=== PATIENT | female | born 1955 | race Caucasian/White ===

== ENCOUNTER 2020-05-24 10:27 | Inpatient (IN) | payer OTHER ==
[2020-05-24] VITALS (12 sets, daily range): BP systolic 86–127; BP diastolic 52–66
[~2020-05-24] VITALS: Ht 152.4 cm; Wt 50.5 kg
--- NOTE | ~2020-05-24 | EMS ---
[address] [address] EMS Patient Care Report Name: RAZ GARCÍA Room #: 243-P ADM IN M.R.#: [id number] Admission: 05/24/20 Attend Phys: Susan Rivera Discharge: Date of : 51 Report #: [id number] THIS REPORT FOR: //name// Report Transmitted: 05/25/2020 18:07 EMS Care Summary [place], [place]/[facility] Incident [id number] @ 05/24/2020 09:54 Incident Location [address] [place] [address] Patient RAZ GARCÍA Female, 65 Years 1955 Patient Address [address] [place] [address] Patient History Dementia, Patient Allergies No known allergies, Patient Medications None Reported, Chief Complaint unresponsive Disposition Transported Lights/[place] Dispatch Reason Unconscious/Fainting Transported To [facility] Narrative RESPONDED TO UNCONSCIOUS AT HOME. UPON ARRIVAL P45 FF REPORTS PT IS NOT ALERT TO BASELINE AND THEY STRUGGLED TO GET AN ACCURATE BLOOD PRESSURE. PT FOUND ON FLOOR IN BATHROOM, AWAKE BUT NOT VERBAL AND UNABLE TO COMMUNICATE. IT IS UNKNOWN WHEN PT WAS LAST SEEN NORMAL PER ORGANIC CHEMIST. PT TEAM LIFTED AND PUT ON [facility] [address] [place] [address] EMS Patient Care Report Name: RAZ GARCÍA Room #: 243-P ADM IN M.R.#: [id number] Admission: 05/24/20 Attend Phys: Susan Rivera Discharge: Date of : 51 Report #: [id number] COT SUPINE. PT HAS THREADY RADIAL PULSE. IV AND FLUIDS WERE PREPPED. PT GIVEN D 10 THROUGH IV AND FLUIDS WERE GIVEN VIA IO IN TIBIA. PT GIVEN A TOTAL OF 100ML OF D10 WITH NO CHANGE IN MENTAL STATUS. PT GIVEN 800 ML OF NORMAL SALINE WITH NO CHANGE IN PRESSURE. PT REMAINED ON NRB 02 AT 15LPM. PT TRANSPORTED TO [facility] WITH 2 FF RIDERS. PT TEAM LIFTED TO BED AND REPORT GIVEN TO NURSE. Initial Vitals @10:18P: 99,BP: 44/21,SpO2: 92, @10:22P: 98,R: 25,BP: 39/31,Glucose: 200,SpO2: 90, @10:13P: 106,R: 22,BP: 43/24,Pain: 0/10,GCS: 3,Glucose: 63,SpO2: 94,Revised Trauma: 5, Assessments @10:05MENTAL:Unresponsive,SKIN:Pale,HEENT:Head/Face: No Abnormalities,Neck/Airway: No Abnormalities,LUNG SOUNDS:General: No Abnormalities,ABDOMEN:General: No Abnormalities,PELVIS//GI:Incontinence,EXTREMITIES:Left Arm: Weakness,Right Arm: Weakness,Left Leg: Weakness,Right Leg: Weakness,PULSE:NEURO:No Abnormalities,@10:14MENTAL:Unresponsive,SKIN:Pale,HEENT:Head/Face: No Abnormalities,Neck/Airway: No Abnormalities,LUNG SOUNDS:General: No Abnormalities,Left Upper: No Abnormalities,Right Upper: No Abnormalities,Left Lower: No Abnormalities,Right Lower: No Abnormalities,ABDOMEN:General: No Abnormalities,Left Upper: No Abnormalities,Right Upper: No Abnormalities,Left Lower: No Abnormalities,Right Lower: No Abnormalities,PELVIS//GI:Incontinence,EXTREMITIES:Right Arm: Weakness,Left Arm: Weakness,Left Leg: Weakness,Right Leg: Weakness,PULSE:NEURO:No Abnormalities, Impression Altered Mental Status Procedures @PTAOxygen FlowRate: 15 Device: Non Re-breather Mask (NRB) Succeeded@10:09Saline Lock 0cc (20 ga) Site: Antecubital-LeftResponse: UnchangedFailed@10:10Saline Lock 0cc (20 ga) Site: Antecubital-RightResponse: UnchangedFailed@10:10Saline Lock 3cc (22 ga) Site: Forearm-LeftResponse: ImprovedSucceeded@10:17Normal Saline (.9% NaCl) 800cc (EZ-IO (Blue 25mm)) Site: BU-Qyeaj-Svzt ProximalResponse: ImprovedSucceeded@10:11Dextrose 10% - 100 Milliliters (ml) - Intravenous (IV)Response: Improved@10:083-Lead ECGResponse: UnchangedSucceeded@10:05ALS AssessmentResponse: UnchangedSucceeded Timeline 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,Oxygen FlowRate: 15 Device: Non Re-breather Mask (NRB) Succeeded, 09:52,Call Received 09:52,Dispatch Notified 09:54,Dispatched [address] [address] EMS Patient Care Report Name: RAZ GARCÍA Room #: 243-P ADM IN M.R.#: [id number] Admission: 05/24/20 Attend Phys: Susan Rivera Discharge: Date of : 51 Report #: [id number] 09:56,En Route 10:05,On Scene 10:05,At Patient 10:05,ALS Assessment,Response: UnchangedSucceeded, 10:08,3-Lead ECG,Response: UnchangedSucceeded, 10:09,Saline Lock 0cc 20 ga Site: Antecubital-Left,Response: UnchangedFailed, 10:10,Saline Lock 0cc 20 ga Site: Antecubital-Right,Response: UnchangedFailed, 10:10,Saline Lock 3cc 22 ga Site: Forearm-Left,Response: ImprovedSucceeded, 10:11,Dextrose 10% - 100 Milliliters (ml) - Intravenous (IV),Response: Improved 10:13,BP: 43/24 M,PULSE: 106,RR: 22 R,SPO2: 94 Ox,ETCO2: ,B,PAIN: 0,GCS: 3, 10:17,Depart Scene 10:17,Normal Saline (.9% NaCl) 800cc EZ-IO (Blue 25mm) Site: BW-Huqyi-Hwsd Proximal,Response: ImprovedSucceeded, 10:18,BP: 44/21 M,PULSE: 99,RR: R,SPO2: 92 Ox,ETCO2: ,BG: ,PAIN: ,GCS: , 10:22,BP: 39/31 M,PULSE: 98,RR: 25 R,SPO2: 90 Ox,ETCO2: ,B,PAIN: ,GCS: , 10:24,At Destination 10:40,Call Closed Disclaimer v1.1 Copyright 2020 [employer] This EMS Care Summary contains data elements from the applicable legal record (which may be displayed differently). It is designed to provide pertinent information for the following purposes: continuity of care, clinical quality, and state data reporting. The complete legal record is available to ED staff and administrators of the receiving hospital in [employer]'s Patient Tracker. All data is provided "as is."
--- NOTE | ~2020-05-24 | EMS ---
[address] [address] EMS Patient Care Report Name: RAZ GARCÍA Room #: PRE M.R.#: [id number] Admission: Attend Phys: Discharge: Date of : 51 Report #: [id number] THIS REPORT FOR: //name// Report Transmitted: 05/24/2020 10:43 EMS Care Summary [place], [place]/[facility] Incident [id number] @ 05/24/2020 09:54 Incident Location [address] [place] [address] Patient RAZ GARCÍA Female, 65 Years 1955 Patient Address [address] [place] [address] Patient History Dementia, Patient Allergies No known allergies, Patient Medications None Reported, Chief Complaint unresponsive Disposition Transported Lights/[place] Dispatch Reason Unconscious/Fainting Transported To [facility] Narrative RESPONDED TO UNCONSCIOUS AT HOME. UPON ARRIVAL P45 FF REPORTS PT IS NOT ALERT TO BASELINE AND THEY STRUGGLED TO GET AN ACCURATE BLOOD PRESSURE. PT FOUND ON FLOOR IN BATHROOM, AWAKE BUT NOT VERBAL AND UNABLE TO COMMUNICATE. IT IS UNKNOWN WHEN PT WAS LAST SEEN NORMAL PER MULTIMEDIA TEACHER. PT TEAM LIFTED AND PUT ON [address] [address] EMS Patient Care Report Name: RAZ GARCÍA Room #: PRE Laina.#: [id number] Admission: Attend Phys: Discharge: Date of : 51 Report #: [id number] COT SUPINE. PT HAS THREADY RADIAL PULSE. IV AND FLUIDS WERE PREPPED. PT GIVEN D 10 THROUGH IV AND FLUIDS WERE GIVEN VIA IO IN TIBIA. PT GIVEN A TOTAL OF 100ML OF D10 WITH NO CHANGE IN MENTAL STATUS. PT GIVEN 800 ML OF NORMAL SALINE WITH NO CHANGE IN PRESSURE. PT REMAINED ON NRB 02 AT 15LPM. PT TRANSPORTED TO [facility] WITH 2 FF RIDERS. PT TEAM LIFTED TO BED AND REPORT GIVEN TO NURSE. Initial Vitals @10:18P: 99,BP: 44/21,SpO2: 92, @10:22P: 98,R: 25,BP: 39/31,Glucose: 200,SpO2: 90, @10:13P: 106,R: 22,BP: 43/24,Pain: 0/10,GCS: 3,Glucose: 63,SpO2: 94,Revised Trauma: 5, Assessments @10:05MENTAL:Unresponsive,SKIN:Pale,HEENT:Head/Face: No Abnormalities,Neck/Airway: No Abnormalities,LUNG SOUNDS:General: No Abnormalities,ABDOMEN:General: No Abnormalities,PELVIS//GI:Incontinence,EXTREMITIES:Left Arm: Weakness,Right Arm: Weakness,Left Leg: Weakness,Right Leg: Weakness,PULSE:NEURO:No Abnormalities,@10:14MENTAL:Unresponsive,SKIN:Pale,HEENT:Head/Face: No Abnormalities,Neck/Airway: No Abnormalities,LUNG SOUNDS:General: No Abnormalities,Left Upper: No Abnormalities,Right Upper: No Abnormalities,Left Lower: No Abnormalities,Right Lower: No Abnormalities,ABDOMEN:General: No Abnormalities,Left Upper: No Abnormalities,Right Upper: No Abnormalities,Left Lower: No Abnormalities,Right Lower: No Abnormalities,PELVIS//GI:Incontinence,EXTREMITIES:Right Arm: Weakness,Left Arm: Weakness,Left Leg: Weakness,Right Leg: Weakness,PULSE:NEURO:No Abnormalities, Impression Altered Mental Status Procedures @PTAOxygen FlowRate: 15 Device: Non Re-breather Mask (NRB) Succeeded@10:09Saline Lock 0cc (20 ga) Site: Antecubital-LeftResponse: UnchangedFailed@10:10Saline Lock 0cc (20 ga) Site: Antecubital-RightResponse: UnchangedFailed@10:10Saline Lock 3cc (22 ga) Site: Forearm-LeftResponse: ImprovedSucceeded@10:17Normal Saline (.9% NaCl) 800cc (EZ-IO (Blue 25mm)) Site: NZ-Xxdap-Pxla ProximalResponse: ImprovedSucceeded@10:11Dextrose 10% - 100 Milliliters (ml) - Intravenous (IV)Response: Improved@10:083-Lead ECGResponse: UnchangedSucceeded@10:05ALS AssessmentResponse: UnchangedSucceeded 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,Oxygen FlowRate: 15 Device: Non Re-breather Mask (NRB) Succeeded, 09:52,Call Received 09:52,Dispatch Notified 09:54,Dispatched [address] [address] EMS Patient Care Report Name: RAZ GARCÍA Room #: NAZANIN Lucio#: [id number] Admission: Attend Phys: Discharge: Date of : 51 Report #: [id number] 09:56,En Route 10:05,On Scene 10:05,At Patient 10:05,ALS Assessment,Response: UnchangedSucceeded, 10:08,3-Lead ECG,Response: UnchangedSucceeded, 10:09,Saline Lock 0cc 20 ga Site: Antecubital-Left,Response: UnchangedFailed, 10:10,Saline Lock 0cc 20 ga Site: Antecubital-Right,Response: UnchangedFailed, 10:10,Saline Lock 3cc 22 ga Site: Forearm-Left,Response: ImprovedSucceeded, 10:11,Dextrose 10% - 100 Milliliters (ml) - Intravenous (IV),Response: Improved 10:13,BP: 43/24 M,PULSE: 106,RR: 22 R,SPO2: 94 Ox,ETCO2: ,B,PAIN: 0,GCS: 3, 10:17,Depart Scene 10:17,Normal Saline (.9% NaCl) 800cc EZ-IO (Blue 25mm) Site: RN-Eossf-Gary Proximal,Response: ImprovedSucceeded, 10:18,BP: 44/21 M,PULSE: 99,RR: R,SPO2: 92 Ox,ETCO2: ,BG: ,PAIN: ,GCS: , 10:22,BP: 39/31 M,PULSE: 98,RR: 25 R,SPO2: 90 Ox,ETCO2: ,B,PAIN: ,GCS: , 10:24,At Destination 10:40,Call Closed Disclaimer v1.1 Copyright 2020 [employer] This EMS Care Summary contains data elements from the applicable legal record (which may be displayed differently). It is designed to provide pertinent information for the following purposes: continuity of care, clinical quality, and state data reporting. The complete legal record is available to ED staff and administrators of the receiving hospital in [employer]'s Patient Tracker. All data is provided "as is."
[2020-05-24 10:37] LABS: BE(vivo) -9.1 mmol/L (-2 to +3); HCO3 15.4 mmol/L (22.0-26.0); PCO2 29.5 mmHg (35.0-45.0); PO2 235.8 mmHg (80.0-100.0); pH 7.336 (7.360-7.450); sO2 99.5 % (92.0-98.0)
[2020-05-24 10:46] LABS: ABSOLUTE NEUTROPHILS 14.7 thou/uL (1.4-8.2); BASOPHILS 0.3 % (0.0-2.0); HEMATOCRIT 42.6 % (37.0-47.0); HEMOGLOBIN 13.7 gm/dL (12.0-15.0); MCH 30.5 pg (26.0-34.0); MCHC 32.1 g/dL (28.0-37.0); MCV 94.8 fL (80.0-100.0); MONOCYTES 7.3 % (1.0-8.0); POLYS 89.4 % (36.0-66.0); RDW 13.7 % (10.5-14.5); WBC 16.4 thou/uL (4.0-11.0)
[2020-05-24 10:49] LABS: ANION GAP 13 mmol/L (7-16); BUN 92 mg/dL (7-18); CALCIUM 7.9 mg/dL (8.5-10.1); CHLORIDE 114 mmol/L (98-107); CO2 23 mmol/L (21-32); CREATININE 2.3 mg/dL (0.6-1.0); GLUCOSE 349 mg/dL (74-106); POTASSIUM 5.6 mmol/L (3.5-5.1); SODIUM 150 mmol/L (136-145)
[2020-05-24 10:58] LABS: TROPONIN-I <0.06 ng/mL (<0.06)
[2020-05-24 11:16] LABS: URINE BILIRUBIN NEGATIVE (Negative); URINE BLOOD 3+ (Negative); URINE CLARITY CLEAR; URINE COLOR YELLOW; URINE GLUCOSE-RANDOM* NEGATIVE (Negative); URINE KETONES NEGATIVE (Negative); URINE LEUKOCYTES-REFLEX NEGATIVE (Negative); URINE NITRITE-REFLEX NEGATIVE (Negative); URINE PROTEIN (DIPSTICK) TRACE (Negative); URINE SPECIFIC GRAVITY 1.025 (1.005-1.035); URINE UROBILINOGEN 0.2 E.U./dl (0.2-1.0)
[2020-05-24 11:33] LABS: PLATELET COUNT 96 thou/uL (150-400); PLATELET ESTIMATE SLIGHTLY DECREASED
[2020-05-24 11:37] LABS: AMORPHOUS URATES Moderate /LPF (None Seen); BACTERIA-REFLEX 1-9 Few /HPF (None Seen); HYALINE CASTS 4-10 Moderate /LPF (None Seen); SQUAMOUS 4-10 Moderate /LPF (0-3); URINE RBC 0-2 Rare /HPF (0-2); URINE WBC-REFLEX 0-5 Rare /HPF (0-5)
--- NOTE | 2020-05-24 13:00 | NUR ---
JESSICA OSUNA, , HOUSEMATE/AMMONIA SOLUTION PREPARER, OK'D BY [facility] TO GIVE MEDICAL INFORMATION
[2020-05-24] MEDS ORDERED: LEXAPRO 10 MG T10 MG PO (13:47)
--- NOTE | 2020-05-24 19:19 | NUR ---
PT ADMITTED FROM THE ER, PT ARRIVED HERE AT AROUND 1630. PT WITH A GCS OF 12 AND A/O TIMES 2. PT SETTLED IN ROOM AND WIPE DOWN DOWN. ORDERS ACKNOWLEDGED. PT WITH AMS AND NOT ABLE TO ANSWER ALL QUESTIONS. PT RESTING WITH EYES CLOSED.
--- NOTE | 2020-05-24 23:38 | NUR ---
At approximately 2119, patient's niece, Marielew Brannon, who is the DPOA was updated on patient's status and all questions were answered. She clarified that patient does not have a caregiver but instead a roommate.
[2020-05-25] VITALS (20 sets, daily range): BP systolic 93–126; BP diastolic 51–66
[2020-05-25 05:12] LABS: HEMATOCRIT 34.3 % (37.0-47.0); MCH 30.5 pg (26.0-34.0); MCHC 32.8 g/dL (28.0-37.0); MCV 93.1 fL (80.0-100.0); RBC 3.68 mil/uL (4.20-5.00); RDW 13.7 % (10.5-14.5); WBC 10.6 thou/uL (4.0-11.0)
[2020-05-25 05:13] LABS: CALCIUM 7.3 mg/dL (8.5-10.1)
[2020-05-25 05:22] LABS: ALBUMIN 1.9 g/dL (3.4-5.0); PHOSPHORUS 2.4 mg/dL (2.5-4.9)
[2020-05-25 05:27] LABS: HEMOGLOBIN 11.2 gm/dL (12.0-15.0)
[2020-05-25 05:49] LABS: CREATININE 0.9 mg/dL (0.6-1.0); POTASSIUM 4.2 mmol/L (3.5-5.1)
[2020-05-25 05:51] LABS: TROPONIN-I 1.8 ng/mL (<0.06)
--- NOTE | 2020-05-25 06:41 | NUR ---
Received report from offgoing RN and assumed patient care. Patient drowsy but opens eyes to name and is oriented to self only. Patient noted to have a large deep tissue injury on the sacrum. Patient stated this am she is hungry and wanted to eat. Patient has not eaten for 2 days according to family. Additionally, patient had a critical Troponin this am and cardiology was consulted. No other acute events occurred during this shift and VS remained stable.
--- NOTE | 2020-05-25 07:59 | EKG ---
[facility] [address] [address] ELECTROCARDIOGRAM [facility] Room #: [facility]-P ADM IN M.R.#: [id number] Admission: 05/24/20 Attend Phys: Susan Rivera Discharge: Date of : 51 Report #: [id number] THIS REPORT FOR: cc: FAM - Family physician unknown FAM - Family physician unknown Willem Alegre MD [facility] THIS REPORT FOR: //name// [facility] ED Test Date: 2020-05-24 Test Time: 10:38:25 Pat Name: RAZ GARCÍA Department: Room: [facility] Gender: F Banking Analyst: : 1955 Requested By: Emely Donis Order Number: [id number] MD: Willem Alegre Measurements Intervals [place] Rate: 93 P: 38 LA: 150 QRS: 76 QRSD: 108 T: QT: 383 QTc: 477 Interpretive Statements Sinus rhythm Multiple atrial premature complexes Nonspecific ST segment abnormality Artifact in lead(s) I,II,aVF,V1,V2,V3,V4,V5,V6 No previous ECG available for comparison Electronically Signed On 05-25-2020 7:58:48 CDT by Willem Alegre [email or web address] <ELECTRONICALLY SIGNED> By: Willem Alegre MD, [facility] 05/25/20 0758 1038 1038 Willem Alegre MD, [facility] /EPI
--- NOTE | 2020-05-25 08:17 | EKG ---
[facility] [place] [address] [place] [address] ELECTROCARDIOGRAM REPORT Name: RAZ GARCÍA Room #: 243- ADM IN M.R.#: [id number] Admission: 05/24/20 Attend Phys: Susan Rivera Discharge: Date of : 51 Report #: [id number] THIS REPORT FOR: cc: FAM - Family physician unknown FAM - Family physician unknown Willem Alegre MD [facility] THIS REPORT FOR: //name// [facility] Test Date: 2020-05-25 Test Time: 07:37:07 Pat Name: RAZ GARCÍA Department: Room: [facility] Gender: F Hat Trimmer: Anita MÉNDEZ : 1955 Requested By: Aleah Melvin Order Number: [id number] MD: Willem Alegre Measurements Intervals [place] Rate: 87 P: 96 IL: 100 QRS: 77 QRSD: 78 T: -5 QT: 385 QTc: 463 Interpretive Statements Sinus rhythm RSR' in V1 or V2, right VCD Compared to ECG 05/24/2020 10:38:25 RSR' in V1 or V2 now present Electronically Signed On 05-25-2020 8:16:38 CDT by Willem Alegre [email or web address] <ELECTRONICALLY SIGNED> By: Willem Alegre MD, [facility] 05/25/20 0816 0737 0737 Willem Alegre MD, [facility] /EPI
--- NOTE | 2020-05-25 09:53 | 2DMMODE ---
[facility] [address] [place] [address] 2 D/M-MODE ECHOCARDIOGRAM Name: RAZ GARCÍA Room #: 243-P ADM IN M.R.#: [id number] Admission: 05/24/20 Attend Phys: Susan Rivera Discharge: Date of : 51 Report #: [id number] THIS REPORT FOR: cc: FAM - Family physician unknown FAM - Family physician unknown John Carmen MD ~ APPROVED REPORT Study performed: 05/25/2020 08:08:39 EXAM: Comprehensive 2D, Doppler, and color-flow Echocardiogram Patient Location: ICU Room #: 243 Status: routine BSA: 1.41 HR: 88 bpm BP: 105/51 mmHg Rhythm: NSR Other Information Study Quality: Technically Limited Indications Elevated Troponin Unresponsive 2D Dimensions RVDd: 37.30 mm IVSd: 8.28 (7-11mm) LVOT Diam: 17.64 (18-24mm) LVDd: 33.75 mm PWd: 9.42 (7-11mm) Ascending Ao: 23.88 (22-36mm) LVDs: 21.77 (25-40mm) Aortic Root: 24.57 mm IVC: 12.00 mm Aortic Valve AoV Peak Rogerio.: 1.24 m/s AO Peak Gr.: 6.18 mmHg LVOT Max P.97 mmHg LVOT Max V: 1.00 m/s NUNO Vmax: 1.96 cm2 Pulmonary Valve PV Peak Rogerio.: 1.02 m/s PV Peak Gr.: 4.20 mmHg Tricuspid Valve [facility] [address] [place] [address] 2 D/M-MODE ECHOCARDIOGRAM Name: RAZ GARCÍA Room #: 243-P ADM IN M.R.#: [id number] Admission: 05/24/20 Attend Phys: Susan Montilla Discharge: Date of : 51 Report #: [id number] TR Peak Rogerio.: 3.02 m/s TR Peak Gr.: 36.41 mmHg PA Pressure: 41.00 mmHg Left Ventricle The left ventricle is normal size. There is normal LV segmental wall motion. There is normal left ventricular wall thickness. The left ventricular systolic function is normal. The left ventricular ejection fraction is within the normal range. LVEF is 55-60%. This study is not technically sufficient to allow evaluation of the LV diastolic function. Right Ventricle The right ventricle is normal size. The right ventricular systolic function is normal. Atria The left atrium size is normal. The right atrium size is normal. Aortic Valve The aortic valve is normal in structure. No aortic regurgitation is present. There is no aortic valvular stenosis. Mitral Valve The mitral valve is normal in structure. Trace mitral regurgitation. No evidence of mitral valve stenosis. Tricuspid Valve The tricuspid valve is normal in structure. There is mild tricuspid regurgitation. Estimated PAP 41 mmHg. There is mild-moderate pulmonary hypertension. Pulmonic Valve The pulmonary valve is normal in structure. There is no pulmonic valvular regurgitation. Great Vessels The aortic root is normal in size. IVC is normal in size and collapses >50% with inspiration. Pericardium There is no pericardial effusion. <Conclusion> The left ventricle is normal size. [facility] [address] [address] 2 D/M-MODE ECHOCARDIOGRAM Name: RAZ GARCÍA Room #: 243-P ADM IN M.R.#: [id number] Admission: 05/24/20 Attend Phys: Susan Montilla Discharge: Date of : 51 Report #: [id number] LVEF is 55-60%. The aortic valve is normal in structure. The mitral valve is normal in structure. Trace mitral regurgitation. The tricuspid valve is normal in structure. There is mild tricuspid regurgitation. Estimated PAP 41 mmHg. There is mild-moderate pulmonary hypertension. The pulmonary valve is normal in structure. There is no pericardial effusion. <ELECTRONICALLY SIGNED> By: John Carmen MD 05/25/2055 2 2 John Carmen MD /INF
--- NOTE | 2020-05-25 10:30 | NUR ---
chart review. unable to visit with pt at this time rt 02 5 L and soa at times. will cont following as needed for dc needs.
--- NOTE | 2020-05-25 10:45 | NUR ---
RN assumed care at 0700. PT appeared drowsy and moaned. She did not answer questions appropriate but kept moaning, "food". RN recieved a call from microbiology stating that the PT had 2 positive blood cultures at 0808. RN paged Dr. Rivera at 0810. Dr. Rivera on unit at approximately 0950. He stated that he was aware of the blood cultures and ordered IVAbx. Rn notified Dr. Rivera that the PT has been lethargic and was not responding to verbal or tactile stimulation. Narcan 1.2mg was ordered to be given. A slight improvment was noted in PT's mental status. She opened her eyes spontaneously and stated that her name was Keerthi and she was in the hospital. Dr. Rivera notified of the improvement and ordered a drug screen UA and another dose of narcan 1.2mg to be given. Dr. Rivera spoke with PT's trever via phone who stated she was on her way to visit the PT. High fall risk precautions are in place. RN will continue to monitor.
[2020-05-25 11:26] LABS: AMP/METHAMP Negative (Negative); BARBITURATES Negative (Negative); BENZODIAZEPINES Negative (Negative); COCAINE Negative (Negative); METHADONE Negative (Negative); OPIATES Negative (Negative); PCP Negative (Negative)
--- NOTE | 2020-05-25 13:58 | NUR ---
PT went into vtach at 1338. It was not sustained. PT went back to sinus rhythm without intervention by 1339. PT denied any chest pain or discomfort. Family at bedside and did not notice a change in PT. RN notified Dr. Rivera of the event. He ordered 150 mg of amiodarone bolus and to check he magnesium levels. RN verbalized understanding. Will continue to monitor.
--- NOTE | 2020-05-25 14:50 | NUR ---
PT's family told RN at bedside that they spoke with PT and have decided to make her a DNR. RN clarified that a DNR means in the event of cardiac arrest or respiratory failure the PT would not recieve life saving measures such as chest compression, defibrillation/shocking, medications, or a breathing tube. PT's niece stated I am aware and that is what she wants. RN asked the family if they had any further questions regarding code status to which they said no. RN asked family if they had made a decision in regards to comfort/hospice care. The niece stated she wanted to go home and speak with her dad (the PT's brother) before deciding on hopsice care. RN verbalized understanding. RN spoke with and updated him of the family's wishes. He verbalized understanding and ordered for PT's code status to be changed to DNR. Will continue to monitor.
[2020-05-26 01:06] LABS: GLYCOHEMOGLOBIN (HGB A1C) 5.8 % (4.8-5.6)
--- NOTE | 2020-05-26 04:06 | NUR ---
ASSUMED CARE OF PT AT 2049 A TRANSFER FROM ICU. PT IS A/O X2. ANSWERS QUESTIONS AT TIMES WITH ONE WORD ANSWERS. NO C/O PAIN OR DISCOMFORT VERBALIZED. WOUNDS UNCHANGED FROM PREVIOUS CHARTING. BARRIER CREAM APPLIED. SCD'S PLACED. REPOSITIONED PT FOR COMFORT. MOUTH CARE GIVEN. BS LEVEL WITHIN NORMAL RANGES. VSS. PT IS CURRENTLY IN HER BED AND APPEARS TO BE SLEEPING. FALL PRECAUTIONS ARE IN PLACE, CALL LIGHT IS WITHIN REACH.WILL CONTINUE TO MONITOR
[2020-05-26 06:18] LABS: HEMATOCRIT 32.5 % (37.0-47.0); HEMOGLOBIN 10.8 gm/dL (12.0-15.0); MCH 30.9 pg (26.0-34.0); MCHC 33.1 g/dL (28.0-37.0); MCV 93.1 fL (80.0-100.0); RBC 3.49 mil/uL (4.20-5.00); RDW 13.6 % (10.5-14.5)
[2020-05-26 06:51] LABS: ALBUMIN 1.8 g/dL (3.4-5.0); CALCIUM 7.3 mg/dL (8.5-10.1); CREATININE 0.7 mg/dL (0.6-1.0); PHOSPHORUS 2.1 mg/dL (2.5-4.9); POTASSIUM 3.4 mmol/L (3.5-5.1)
[2020-05-26 07:30] VITALS: BP 133/62
[2020-05-26 14:10] VITALS: BP 139/85
--- NOTE | 2020-05-26 14:41 | NUR ---
ASSUMED CARES AT 0700. PT ORIENTED TO PLACE & PERSON, SLURRED SPEECH. SHORT INCOMPLETE RESPONSES WITH DELAYED RESPONSE. DENIES PAIN AT THIS TIME. VITALS REMAIN STABLE. WOUNDS ON SACRUM AND CHIN CLEANED AND SPECIALTY COOK. PT REPOSITIONED Q2H. IV ON JOHANA UPPERARMS REMAIN INTACT AND PATENT, IV ANTIBIOTICS ADMINISTERED SCHEDULED. AMARO REMAINS INTACT AND PATENT, URINE IS LIGHT YELLOW AND CLEAR. PT REQUESTING ORAL INTAKE, PUREE DIET ORDER, ASSISTANCE REQUIRED WITH FEEDING. FREQ VISUAL CHECKS. FALL PRECAUTIONS IN PLACE
--- NOTE | 2020-05-26 16:39 | NUR ---
CM SPOKE WITH PHYSICIAN AND PT'S ASH THIS DAY. NICAROLYN WAS RECEPTIVE TO REFERRAL BEING SENT TO [facility] FOR REVIEW FOR POSSIBLE ADMISSION SHE [place]IVES IN [place]. REFERRAL SENT THEY REVIEWED AND INDICATED THAT PT WASN'T RECIEVING ANY MEDS OR TREATMENT FOR SYMPTOM MANAGEMENT AT TIME AND THEREFORE DIDN'T QUALIFY. CM NOTIFIED PHYSICIAN WHO STATED THAT PT WOULD BE GETTING FENTYNEL PATCH CM INDICATED THAT MEDS WOULD NEED TO BE IV. PHYSICAIN INDICATED THOSE COULD BE ORDERED. CM TO FOLLOW BACK UP WITH CLINICAL UPDATES ONCE CHANGES ARE MADE. CM TO FOLLOW INDICATED WITH DC PLANNING.
[2020-05-26 20:01] VITALS: BP 136/64
[2020-05-27 05:33] VITALS: BP 113/55
--- NOTE | 2020-05-27 06:01 | NUR ---
Assumed pt care at 1900. Pt alert to self and place,able to voice needs at times and other times has problems finding words. Denies pain on assessment, pt able to tolerate honey thick liquids well w/o coughing. IVF infusing via LUE IV, has a RUE as well patent. Pt has wounds on sacrum,right buttock,under chin Yarely GLOBAL TECHNICAL WRITER notified for wound care consult, pictures taken. Fall precautions in place, will continue to monitor pt.
--- NOTE | 2020-05-27 07:23 | NUR ---
Nutrition update: Hospice house referral made yesterday per chart review. Still awaiting acceptance. Pt started trial of PO diet with pureed diet and honey thick liquids at recommendation of DYE RANGE OPERATOR on 05/26. See other nutrition updates in RD reassessment note this date.
[2020-05-27 08:10] VITALS: BP 124/76
--- NOTE | 2020-05-27 08:56 | NUR ---
WOUND CARE CONSULT; PT AWAKE, STATES SHE KNOWS SHE IN THE HOSPITAL, BUT SOME CONFUSION PRESENT, ASSESSED WOUNDS W/ FACILITIES SPECIALIST BETH, LARGE UNSTAGEABLE DTI WOUND SACRAL AREA, REDDNESS R BUTTOCK, CHIN WOUND W/ DRY BLOOD, DUE TO SEVERITY OF SACRAL WOUND WILL CONSULT DR LAWRENCE, LOW AIR LOSS PUMP ORDERED FOR BED, XEROFORM AND FOAM DRSG IN PLACE RECOMMENDATIONS; LOW AIR PUMP TO BED, TURN Q 2HOURS, CONSULT DR LAWRENCE
[2020-05-27 12:43] VITALS: BP 103/57
[2020-05-27 14:47] VITALS: BP 130/67
--- NOTE | 2020-05-27 16:17 | NUR ---
CM SPOKE WITH PT'S NIECE AGAIN THIS DAY INDICATED PT DIDN'T MEET CRITERIA FOR HOUSE ADMISSION YESTERDAY. NEW MEDS ADDED BUT NOT ADMININSTERED OF THIS NOTE. CM SENT CLINICAL UPDATE TO [facility] AND SPOKE WITH NICOLÁS GONZALEZ WHO INDICATED THAT THE SOONEST THEY COULD ADMIT PT WOULD BE TOMORROW AFTERNOON IF SHE EVEN QUALIFIES. HE WILL CALL UNIT TOMORROW AND EVAL WITH NURSE ON STATUS. CM CALLED AND NOTIFIED NIECE. HAD SPOKEN ABOUT SENDING REFERRAL TO [facility] FOR REVIEW IF PT DOESN'T QUALIFY FOR HOUSE COME TOMRROW. REFERRAL SENT WILL PROVIDE NIECE WITH ROOM AND BOARD RATE. CM TO FOLLOW INDICATED WITH DC PLANNING [facility] PHONE: FAX:
--- NOTE | 2020-05-27 17:22 | NUR ---
Patient kept saying," Get me out of here" every time when the staff was around; the daughter has been with the patient since 2 hours ago, the patient gave the proper answers to questions about where she was, who was the president, and the year and month, voicing that May 29 was coming. asked for ice cream, ate two bottles of ice cream. tolerated well. had a BM today, big volum, soft, brown color. Wound care nurse had seen the patient and educated the staff about wound care. Low air loss bump ordered; the staff asked the secratary, the secratary stated that the procedure would be dealt with by some other department, the staff would need to wait. The bump has not arrived yet. will pass it on to the night nurse; Comfort care was ordered, patient had been lying in bed with eyes closed most of the shift. the staff asked the daughter if she wanted the mom to get Morphine, the daugher denied the need.
--- NOTE | 2020-05-27 18:00 | NUR ---
Patient talked to the daughter, did not remember being seen by the doctor and wound care nurse in the morning. Denied pain.
[2020-05-27 19:33] VITALS: BP 136/63
--- NOTE | 2020-05-28 05:45 | NUR ---
PROGRESS PT AWAKE AND ALERT. ANSWERS QUESTIONS WITH SHORT WHISPERED ANSWERS SUCH I'M OK" OR "NO I'M NOT HAVING PAIN". REPOSITIONED FREQUENTLY, PROFO BOOTS APPLIED. HEELS FLOATED. TELE INTACT READING SINUS RHYTHM IN THE 60'S TO LOW 80'S. IV FLUIDS INFUSING ORDERED. PT HAD SMALL PO INTAKE DRANK 240 MLS'. AMARO CATHETER WITH ADEQUATE OUTPUT, O2 AT 1 LITER. CONTINUE POC.
[2020-05-28 07:20] VITALS: BP 102/50
[2020-05-28 12:01] LABS: CALCIUM 7.8 mg/dL (8.5-10.1); CREATININE 0.8 mg/dL (0.6-1.0); POTASSIUM 3.4 mmol/L (3.5-5.1)
[2020-05-28 15:25] VITALS: BP 114/50
[2020-05-28 19:41] VITALS: BP 126/68
--- NOTE | 2020-05-28 20:02 | NUR ---
Assumed patient care at 0715. LSCTA (diminished), BS x's 4, ABD soft and non-tender; she denies pain. Patient continues to be turned q 2 hours due to coccyx and bilateral heal wounds. Profo Boots are in place. Patient is eating well. She answers questions with one or two words. IV continues in right upper arm, one is also in left upper arm. NS is running at 100cc/hr. O2 continues at 1 Liter per nc. Patient is a "total care" and a "feeder." She [facility]. Report given to on-coming nurse.
--- NOTE | 2020-05-29 04:42 | NUR ---
PROGRESS PT ALERT AND RESPONDS TO QUESTIONS WITH YES OR NO OR VERY SHORT ANSWERS. IVF'S INFUSING ORDERED. TELE INTACT READING SR WITH RATES IN 70'S TO 80'S. REPOSITIONED Q2HRS SACRAL DRSG INTACT. PT REQUESTED PROFO BOOTS BE REMOVED AND SCD'S OFF FOR AWHILE. HEELS FLOATED WITH PILLOWS AMARO INTACT DRAINING LARGE AMOUNTS OF DARK YELLOW URINE. DENIES PAIN VSS CONTINUE POC.
[2020-05-29 07:39] VITALS: BP 110/54
--- NOTE | 2020-05-29 11:16 | NUR ---
Received awake on bed. Due medications given as prescribed, able to swallow meds w/o difficulty. On O2 at 1lpm via nasal cannula. On telemetry, SR, strips attached to chart; no complaints of chest pain, crushing sensation and heaviness feeling. On regular diet- tolerating well, assisted in eating and drinking; no nausea, no vomiting and no abdominal pain noted. On blood sugar monitoring, taken and recorded accordingly; with sliding scale insulin ordered- given as prescribed. With briseno in place- output measured and recorded accordingly. With sacral wounds- dressing in place; for daily dressing changes. Witd D5 1/2NS at 100cc/hr, infusing well at L AC- flushing well. Assited in ADLs. Turned on her sides regularly. To continue monitoring patient.
[2020-05-29 15:52] VITALS: BP 115/68
[2020-05-29 19:49] VITALS: BP 117/57
[2020-05-30 20:08] VITALS: BP 119/60
--- NOTE | 2020-05-30 20:37 | NUR ---
PATIENT TRANSFERRED TO THE FLOOR AROUND 0730. PT ALERT X ORIENTED X 1, FLAT AFFECT. ANSWERS WORDS AND PHRSESE. ON ROOM AIR, LUNGS CLEAR, AMARO IN PLACE, Q X TURNS X 2HRS. TOTALLY DEPENDENT, NEEDS FEEDER. TAKES PILLS WHOLE WITH WATER. PT REFUSED TO PUT SCD'S AND HEEL BOOT. IV RIGHT FORE ARM. PRESSURE WOUNDS AT THE SACRUM (DRESSING CHANGED) AND HEALING WOUNDS ON THE HEEL. NURSE TALKED TO SAPPHIRE (DPOA). SHIFT REPORT GIVEN TO KARIE.
--- NOTE | 2020-05-31 00:24 | NUR ---
ASSUMED PT CARE AT 1900. PT IS ORIENTED TO SELF, ABLE TO ANSWER SIMPLE YES/NO QUESTIONS. NO C/O PAIN. PM MEDS GIVEN, PT TAKES WHOLE WITH WATER. REFUSES PRESSURE BOOTS, Q2 TURNS PROVIDED. AMARO PATENT WITH GOOD OUTPUT. PT RESTING IN BED WITH EYES CLOSED AT THIS TIME.
[2020-05-31 03:41] LABS: CALCIUM 7.5 mg/dL (8.5-10.1); CREATININE 0.6 mg/dL (0.6-1.0)
[2020-05-31 07:19] VITALS: BP 112/54
--- NOTE | 2020-05-31 08:00 | HC ---
[facility] [place] [address] CONSULTATION Name: RAZ GARCÍA Room #: 445-P ADM IN M.R.#: [id number] Admission: 05/24/20 Attend Phys: Susan Rivera Discharge: Date of : 51 Report #: [id number] THIS REPORT FOR: cc: [facility] - Family physician unknown FAM - Family physician unknown Brian Hinton MD ~ CC: [facility] unknown Susan Rivera DATE OF SERVICE: 05/27/2020 CHIEF COMPLAINT: Multiple pressure ulcerations. HISTORY OF PRESENT ILLNESS: This is a 65-year-old female patient who was found unresponsive by her caregiver. She was brought by ambulance. She is not able to provide any information about herself currently. She has been given fluid boluses, noted to have multiple pressure ulcerations and I have been asked to see her with regard to wound care. PAST MEDICAL HISTORY: Positive for advanced dementia, hyperglycemia, history of encephalopathy. MEDICATIONS: Include Tylenol, Augmentin, aspirin, metoprolol, mupirocin, ondansetron, polyethylene glycol, zolpidem, and escitalopram. ALLERGIES: No known drug allergies. FAMILY HISTORY: Unknown. REVIEW OF SYSTEMS: Unobtainable due to the patient's level of dementia. PHYSICAL EXAMINATION: VITAL SIGNS: At this time include temperature 36.9, pulse 80, respiratory rate 18, blood pressure 124/76, oxygen saturation 99% on room air. GENERAL: This is a chronically ill-appearing female patient who appears to be in minimal distress. HEENT: Head normocephalic. NECK: Supple. CHEST: Nontender. LUNGS: Clear. HEART: Regular rhythm. ABDOMEN: Soft, nontender. EXTREMITIES: Demonstrate edema to the lower extremities bilaterally. NEUROLOGIC: The patient is disoriented. She has generalized weakness. It is difficult to tell whether she has focal weakness. SKIN: Demonstrates bruising to the left anterior lateral thigh. She appears to [facility] [address] [place] [address] CONSULTATION Name: RAZ GARCÍA Room #: 445-P ADM IN .R.#: [id number] Admission: 05/24/20 Attend Phys: Susan Rivera Discharge: Date of : 51 Report #: [id number] have bruises from that may be related to SCDs on her lower extremities. She has abrasions to the left lateral ankle, an unstageable pressure ulcer to the sacrum, deep tissue injuries to both heels, stage 3 pressure ulceration to the right ischial tuberosity. She has what appears to be a traumatic wound beneath her chin in the midline. It is relatively clean with a little bit of crusting. LABORATORY DATA: White blood cell count 8000, with a hemoglobin of 10.8, hematocrit of 32.5, platelet count 75,000. Sodium 161, potassium 3.4, chloride 129, CO2 of 21, BUN 33, creatinine 0.7. Albumin is 1.8. CLINICAL IMPRESSION: 1. Unstageable pressure ulcer of the sacrum. 2. Deep tissue injuries to both heels. 3. Abrasions to both lateral ankles. 4. Stage 3 pressure ulcer to the right ischial tuberosity and what appears to be a traumatic wound to the chin. 5. Advanced dementia and encephalopathy. 6. Hypotension. 7. Hyperglycemia. 8. Severe protein-calorie malnutrition. RECOMMENDATIONS: At this point in time, the patient will be placed a low air loss mattress, q. 2 hour turning and repositioning. Will recommend zinc oxide based barrier cream and sacral foam daily and p.r.n. Plans are noted for comfort care being initiated. Therefore, we will hold off on any surgical debridement. If comfort care/hospice plans change, she would likely benefit from a surgical debridement of her sacrum. Recommend Betadine "paint" or skin prep daily to the heels. PRAFO boots for pressure prophylaxis. The abrasions to the ankles can be left open to air. Zinc oxide barrier cream and foam dressing to the ischial tuberosity. Recommend cleansing the chin wound daily, applying bacitracin ointment and otherwise leaving it open to air. Continue medical management and nutritional support as appropriate for her level of care. I appreciate being asked to see her in consultation. <ELECTRONICALLY SIGNED> By: Brian Hinton MD 05/31/20 [id number] Brian Hinton MD /nt
[2020-05-31] MEDS ORDERED: BAYER CHEWABLE81 MG PO (09:51)
[2020-05-31] MEDS ORDERED: METOPROLOL TART25 MG PO (09:51)
--- NOTE | 2020-05-31 10:03 | NUR ---
Nutrition follow up: Pt decided to not have hospice. Awaiting SNF acceptance now. Pt now allowed a regular diet; food/liquid intake is per pt's request only as stated in EMR. Pt documented as A&Ox1, is totally dependent and is a feeder. According to staff, pt has been eating/drinking really well. Meal intakes reviewed from 05/28 - 05/30. Pt eating 100% of majority of meals, with nearly a 97% meal average this past weekend. No additional nutrition needs at this time, aside from recommendation of ongoing feeding assistance. Low nutrition risk.
[2020-05-31 15:00] VITALS: BP 154/50
--- NOTE | 2020-05-31 17:25 | NUR ---
[facility] indicated they can't accept pt. cm emailed niece list of skilled facilities in network with pt's insurance. awaiting response of where they are interested in looking.
--- NOTE | 2020-05-31 17:48 | NUR ---
ASSUMED CARE OF THE PT AT 0700. PT IS ON BED REST, WORKED WITH PHYSICAL THERAPY TODAY. Q2 TURNS. AMARO INTACT. PAIN MEDS GIVEN FOR PAIN, SEE EMAR. WOUND CARE TEAM SAW WOUNDS, CREAM APPLIED TO CHIN. PT REFUSES PREFLO BOOTS, SPOKE WITH DPOA UPON VISITATION. R FOREARM DRY AND INTACT. FALL PRECAUTIONS IN PLACE, BED IN THE LOWEST POSITION AND CALL LIGHT IS WITHIN REACH. WILL CONTINUE TO MONITOR THE PT.
[2020-05-31 20:30] VITALS: BP 120/48
[2020-06-01 04:06] VITALS: BP 118/48
--- NOTE | 2020-06-01 07:57 | NUR ---
ASSUMED PT CARE AT 1900. PT A&OX2 TONIGHT. YELLING OUT "NURSE" FREQUENTLY WANTING THE FAN OFF, REPOSITIONED...ETC. GIVEN PILLS CRUSHED WITH APPLESAUCE BC SOME DIFFICULTY SWALLOWING WAS NOTICED. PT ASKED FOR SCDS TO BE TAKEN OFF AND REFUSES PRESSURE BOOTS. AMARO PATENT WITH GOOD OUTPUT. NO SIGNIFICANT CHANGES AT THIS TIME.
[2020-06-01 08:30] VITALS: BP 122/49
--- NOTE | 2020-06-01 16:37 | NUR ---
PER NIECES REQUEST REFERRALS SENT TO [facility], [facility], AND [facility]. [facility] CLOSED TO ADMISSIONS DUE TO COVID. [facility] INDICATED THEY WOULD BE ABLE TO ACCEPT AND CAN SUBMIT FOR AUTH IF CHOSEN. CM TO NOTIFY NIECE AND FOLLOW INDICATED WITH DC PLANNING.
[2020-06-01 20:30] VITALS: BP 137/54
--- NOTE | 2020-06-02 04:10 | NUR ---
ASSESSED AT START OF SHIFT. PT A&O3 TO PERSON, PLACE AND SITUATION WITH CONFUSION. IV INTACT AND FLUIDS INFUISNG. EVENING MEDS GIVEN CRUSHED IN APPLE SAUCE. BLE ELEVATED ON PILLOWS. Q2 TURNS DONE AND PT A FEEDER. DENZEL CATH IN PLACE AND WILL CONT TO MONITOR TILL EOS.
[2020-06-02 04:29] VITALS: BP 130/64
[2020-06-02 10:05] VITALS: BP 113/59
--- NOTE | 2020-06-02 14:48 | NUR ---
Pt accepted at [facility] pending insurance auth and a covid neg test within 24hr of dc. Case discussed with the care team. Pt is dc ready. Covid test pending and results should be back later this afternoon. Samantha the liason at [facility] has spoken with the pt's neice and nephew at length yesterday and again today. They are able to accept the pt for a SNF admission with [place] [facility] [place]. [facility] has submitted for insurance auth but do not anticipate getting a response until tomorrow. 124C completed and ready to be sent with the pt. Chart copy in progress. Care team updated.
[2020-06-02 18:43] VITALS: BP 119/59
--- NOTE | 2020-06-02 20:11 | NUR ---
PT CARE ASSUMED AT 0700. A&Ox3. AMARO REMOVED AND EXTERNAL AMARO PLACED WITH 1600 OUTPUT. PT AWAITING INSURANCE APPROVAL FOR PLACEMENT AT [facility]. DNR. WOUNDCARE SEES PT. WOUNDCARE ORDERSE IN CHART. PT IS A Q2 TURN, FEEDER, AND WILL FIXATE ON THE NAME OF HER [employer]SC[employer]TER [employer]ED GLASS AND CALL IT OUT FREQUENTLY THROUGHOUT THE DAY. PT UP IN THE RECLINER FOR TWO HOURS IN THE MASTER LAY OUT SPECIALIST. IV INFILTRATED AND REMOVED. NEW IV PLACED. SALINE LOCKED. PT TAKES MEDICATIONS CRUSHED WITH APPLESAUCE. LOW AIRLOSS PUMP. COVID SWABBED FOR PLACEMENT WITH A NEGATIVE RESULT 06/02/2020. FALL PROTOCOL IN PLACE. WILL CONTINUE TO MONITOR. REPORT GIVEN TO RNDILIA.
[2020-06-02 20:25] VITALS: BP 159/78
--- NOTE | 2020-06-03 01:51 | NUR ---
ASSESSED AT START OF SHIFT PT A&O3 FORGETFULL. EXT FEMALE CATH IN PLACE. EVENING MEDS GIVEN CRUSHED IN APPLE SAUCE. PT A Q2 TURN AND A FEEDER. HAD A BM THIS SHIFT. VSS. SCDS INTACT AND BLE ELEVATED ON PILLOW. FALL PREC IN PLACE AND WILL CONT WITH POC TILL EOS. IV INTACT AND SALINE LOCK. ANTICIPATING D/C TO FACILITY.
[2020-06-03 04:00] VITALS: BP 106/61
[2020-06-03 07:29] VITALS: BP 130/62
[2020-06-03 15:10] VITALS: BP 139/50
--- NOTE | 2020-06-03 17:00 | NUR ---
Case discussed with the care team. Ins auth still pending per the SNF. They anticipate having it by tomorrow mid day and they will be able to transport at [address] Antony neg test refaxed along with her dc summary and 124c. Referral Nurse also spoke with her niece Marie. Questions answered and she is agreeable to the dc plan. She has several questions about possible hospice referral in the future if the pt were to decline again. Information provided. She has talked with the facility as well and plans are in place for transition to [facility] medicaid pending once she has plateaued from snf. Will follow.
[2020-06-03 19:28] VITALS: BP 143/62
--- NOTE | 2020-06-03 19:59 | NUR ---
PT WILL TENTATIVLEY DISCHARGE TOMORROW @ 1300 IF INSURANCE AUTH IS APPROVED...
--- NOTE | 2020-06-04 03:24 | NUR ---
PT ASSESSED AT START OF SHIFT A&0X3 FORGETFULL. MEDS GIVEN CRUSHED IN APPLE SAUCE, PT A FEEDER AND Q2 TURN. EXT FEMALE CATH IN PLACE AND DRAINING. WOUND DRESSING CHANGED. FREQ ROUNDING DONE. ANTICIPATING D/C TOMORROW. FALL PREC IN PLACE AND WILL CONT TO MONITOR TILL EOS.
[2020-06-04 04:10] VITALS: BP 128/53
[2020-06-04 07:00] VITALS: BP 119/52
[2020-06-04] MEDS ORDERED: AUGMENTIN400 MG/53 PO (12:18)
--- NOTE | 2020-06-04 13:58 | NUR ---
Ins auth obtained per Samantha in admissions at [facility]. They can accept this afternoon and have arranged for a 3:30-4pm stretcher van transport. Updated dc summary faxed by the dc menu planner along with their covid screening form. Pt's diet changed to mech soft due to struggle with regular foods and risk of aspiration. Niece aware of above and indicates she is aware of recommendation for future hospice info visit should the pt not do well with rehab. Samantha aware as well and will be working with the family on [place]/hospice referral for transition to [facility] in the future.
== END 2020-06-04 15:54 | DRG 871 ==
LOC: ER 10:27 → EROBS 13:32 → ICU 13:32 → EROBS 15:20 → ICU 16:20 → 4W 05-25 20:43 → 4S 05-30 07:41
PROVIDERS: Emergency Medicine; ADMIT Hospitalist; ATTEND Hospitalist
DX: A41.9 Sepsis, unspecified organism (principal); N17.0 Acute kidney failure with tubular necrosis; L89.313 Pressure ulcer of right buttock, stage 3; E43 Unspecified severe protein-calorie malnutrition; G93.41 Metabolic encephalopathy; N39.0 Urinary tract infection, site not specified; E87.2 Acidosis; E87.0 Hyperosmolality and hypernatremia; I95.9 Hypotension, unspecified; L89.159 Pressure ulcer of sacral region, unspecified stage; E86.0 Dehydration; R73.9 Hyperglycemia, unspecified; F03.90 Unspecified dementia, unspecified severity, without behavioral disturbance, psychotic disturbance, mood disturbance, and anxiety; S90.512A Abrasion, left ankle, initial encounter; S90.511A Abrasion, right ankle, initial encounter; Z90.710 Acquired absence of both cervix and uterus; E16.2 Hypoglycemia, unspecified; F32.9 Major depressive disorder, single episode, unspecified; L89.626 Pressure-induced deep tissue damage of left heel; L89.616 Pressure-induced deep tissue damage of right heel; G47.00 Insomnia, unspecified; Z20.828 Contact with and (suspected) exposure to other viral communicable diseases; X58.XXXA Exposure to other specified factors, initial encounter; Y93.89 Activity, other specified; Y92.89 Other specified places as the place of occurrence of the external cause; Y99.8 Other external cause status; Z66 Do not resuscitate; Z68.21 Body mass index [BMI] 21.0-21.9, adult
CPT/HCPCS: 10045; 10078; 10100; 10195